=== PATIENT | male | born 1940 | race Caucasian/White ===

== ENCOUNTER → 2025-07-03 09:14 | Emergency (ER) | payer MEDICARE, OTHER, SELFPAY ==
[2025-07-03 09:40] VITALS: BP 143/60
--- NOTE | 2025-07-03 10:25 | ED.GENMED ---
History of Present Illness
General
Chief Complaint: Fall
Time Seen by Provider: 07/03/25 09:22
History of Present Illness
History of Present Illness:
85-year-old male presenting from assisted living after a fall. Patient reports that he got up this morning and got tangled in his bed sheets. He subsequently fell backward and struck the back of his head. Denies prodromal infectious dizziness or
lightheadedness. He arrives with a contusion to the back of his scalp, notes bleeding prior to arrival. Denies any neck pain. Denies any blood thinners. Denies any additional injuries. Denies chest pain, difficulty breathing, recent fever, or
additional acute medical complaints
Phy Exam
Physical Exam
Physical Exam:
General: Well-appearing, no clinical signs of dehydration, nontoxic and in no acute distress
HEENT: protecting airway
Head: Contusion to the back of the head with small laceration with bleeding controlled
Neck: appears supple
CV: Normal heart rate, regular rhythm
Resp: No accessory muscle use, no increased work of breathing
Abd: No distention
Extremities: No deformities, no swelling
Neuro: alert, no focal neurologic deficit
: deferred
Rectal: deferred
Psych: Normal affect
Skin: Intact
Course
Orders/Labs/Results
Orders:
Orders
07/03/25 09:30
CT Head W/o Iv Contrast Urgent
Comment:
Reason For Exam: fall, contusion to back of head
Tetanus/Diphth/Acelpertussis [Adacel] 0.5 ml IM .ONCE ONE
Vital Signs
Initial and Last Documented VS:
Initial Vital Signs
Pulse Ox
99
07/03/25 09:34
Last Documented Vital Signs
Pulse Resp BP Pulse Ox
63 20 143/60 96
07/03/25 09:40 07/03/25 09:40 07/03/25 09:40 07/03/25 10:28
Procedures
Laceration Closure
Posterior Head:
Status of Wound: clean
Size of Wound in cm: 3
Preparation: cleaned with saline
Type of Closure: single layer closure and Dermabond-skin glue
Skin Closure Material: other (steristrip 3)
MDM/Problems Addressed
MDM/Problems Addressed:
55-year-old male presenting after a fall with head injury. Vital signs are normal
On exam, patient resting comfortably, no acute distress. Evidence of head contusion, bleeding controlled. Will update tetanus. Given head injury and age, will obtain imaging. No midline cervical tenderness or additional signs of trauma on exam.
Patient denies any prodromal symptoms to the fall, notes that he got caught up in his bed sheets. Wound was cleaned and repaired. Please see procedure note.
11:15 - CT negative for acute process. Feel stable for discharge. Return precautions discussed and patient verbalized understanding
*Pulse Oximetry
SaO2: 96
Oxygen Mode of Delivery: Room air
Patient hypoxic: no
*Critical Care Note
Total Time (30-74mins, 75-104mins- exclusive of procedures): Not Applicable
ED Attending Note
-
Portions of this chart may have been created with voice recognition software.� Occasional wrong word or��sound alike� substitutions may have occurred due to the inherent limitations of voice recognition software.
Discharge Plan
Departure
Patient Disposition: Home (Routine Discharge)
Date of Disposition: 07/03/25
Time of Disposition: 11:15
Patient with high blood pressure during this ER visit?: No
Condition: Good
Discharge Problem:
Contusion of head, Fall
Instructions: Head Injury in Adults (DC), Contusion (DC)
Prescriptions:
No Action
losartan 50 mg Tablet
50 mg PO DAILY
acetaminophen [Tylenol] 325 mg Tablet
650 mg PO Q4HPRN PRN (Reason: mild pain)
lidocaine 4 % Adhesive Patch,Medicated
1 patch TOPICAL DAILY
polyethylene glycol 3350 [Miralax] 17 gram Powder In Packet
17 g PO DAILYPRN PRN (Reason: constipation)
doxazosin 1 mg Tablet
1 mg PO HS
sucralfate [Carafate] 1 gram Tablet
1 g PO QID
atenolol 25 mg Tablet
25 mg PO DAILY
magnesium hydroxide [Milk of Magnesia] 400 mg/5 mL Suspension
2,400 mg PO DAILYPRN PRN (Reason: if no bm by 3rd day)
ascorbic acid (vitamin C) [Vitamin C] 500 mg Tablet
500 mg PO DAILY
bisacodyl [Dulcolax (bisacodyl)] 10 mg Suppository
10 mg NH DAILYPRN PRN (Reason: if no bm by 4th day)
lansoprazole 30 mg Capsule,Delayed Release(Dr/Ec)
30 mg PO DAILY
Fleet Enema 19-7 gram/118 mL Enema
118 ml NH DAILYPRN PRN (Reason: if no bm by 4th day)
docusate sodium [Colace] 100 mg Capsule
100 mg PO DAILY
aspirin 81 mg Tablet,Chewable
81 mg PO DAILY
mirtazapine 15 mg Tablet
15 mg PO HS
Referrals:
Christiano Beckwith MD [Family Provider, Family Practice]
Activity Restrictions/Additional Instructions:
You were seen in the emergency department for head injury
You were found to have normal CT imaging of your brain. Your wound was repaired with Steri-Strips, which are paper stitches.
Please follow-up closely with your primary care physician.
Return to the emergency department for any worsening of your symptoms, or any development of chest pain, difficulty breathing, abdominal pain with persistent vomiting and inability to tolerate food or liquid by mouth (concern for dehydration),
weakness, headache or confusion, fever greater than 100.4, or any additional symptoms that are concerning to you.
Thank you for choosing [facility].
Discharge Date and Time
Print Language: MACEDONIAN
[2025-07-03] MEDS: ADACEL 0.5 ML IM (13:57)
== END | disposition home or self-care (01) ==
LOC: EMR 09:14
PROVIDERS: EMERGENCY PHYSICIAN Student in an Organized Health Care Education/Training Program; FAMILY PHYSICIAN Family Medicine
DX: S00.03XA Contusion of scalp, initial encounter (principal); W19.XXXA Unspecified fall, initial encounter; Z23 Encounter for immunization
CPT/HCPCS: 99284; 12002; 90471; 70450; 90715